=== PATIENT | male | born 1940 | race African-American/Black ===

== ENCOUNTER 2017-08-27 18:47 | Emergency (ER) | payer MEDICARE ==
[~2017-08-27] VITALS: Ht 175.3 cm; Wt 80.0 kg
[2017-08-27] MEDS ORDERED: AMLO2.5T2 PO (18:56)
[2017-08-27] MEDS ORDERED: ASPI-1159 PO (18:56)
[2017-08-27] MEDS ORDERED: OMEP20CA10 PO (18:56)
[2017-08-27] MEDS ORDERED: ATOR10TA PO (18:56)
[2017-08-27] MEDS ORDERED: SODIUM CHLORIDE 0.9% 1,000 ML IV ONE (20:01)
[2017-08-27] MEDS ORDERED: ONDANSETRON HCL 4MG/2ML VIAL IV STA (20:01)
[2017-08-27] MEDS ORDERED: MORPHINE SULFATE 4 MG/ML CPJ (NOT FOR IM USE) IV STA (20:01)
[2017-08-27] MEDS ORDERED: PIPERACILLIN/TAZ 3.375G PREMIX 50 ML IV ONE (20:15)
[2017-08-27] MEDS ORDERED: VANCOMYCIN 1 G PREMIX 200 ML IV ONE (20:15)
[2017-08-27 20:29] LABS: BASOPHILS % 0.7 % (0.0-2.0); EOSINOPHILS % 5.3 % (0.0-5.0); HEMATOCRIT. 35.9 % (42.0-52.0); HEMOGLOBIN. 12.1 g/dL (14.0-18.0); LYMPHOCYTES % 13.2 % (20.0-50.0); MEAN CORPUSCULAR HEMOGLOBIN 31.3 pg (28.0-32.0); MEAN PLATELET VOLUME 8.5 fl (7.4-10.4); NEUTROPHILS % 70.8 % (40.0-76.0); PLATELET 260 x1000/uL (130-400); RED BLOOD CELL COUNT 3.86 mill/uL (4.7-6.1); RED CELL DISTRIBUTION WIDTH 13.8 % (11.6-14.6)
[2017-08-27 20:34] LABS: CHLORIDE 102 mEq/L (98-107)
[2017-08-27 20:37] LABS: INR 1.1
[2017-08-27 23:05] VITALS: BP 146/78
== END 2017-08-27 23:24 | disposition left against medical advice (07) ==
LOC: ER 18:47 → CANBEDREQ 08-28 03:37
DX: L08.9 Local infection of the skin and subcutaneous tissue, unspecified (principal); I10 Essential (primary) hypertension; E78.00 Pure hypercholesterolemia, unspecified; Z79.82 Long term (current) use of aspirin; Z86.73 Personal history of transient ischemic attack (TIA), and cerebral infarction without residual deficits; K21.9 Gastro-esophageal reflux disease without esophagitis; Z87.891 Personal history of nicotine dependence
CPT/HCPCS: 36415; 80053; 83605; 84484; 85025; 85610; 86850; 86900; 86901; 87040; 93005; 99285; J7030; J2270; J2405; J2543